=== PATIENT | male | born 1955 | race Caucasian/White ===

== ENCOUNTER 2017-03-23 09:00 | Outpatient (CLI) | payer BC ==
[~2017-03-23] VITALS: Ht 172.7 cm; Wt 65.8 kg
== END 2017-03-23 09:27 ==
LOC: PREOP 09:00
PROVIDERS: ATTEND Internal Medicine
DX: Z01.818 Encounter for other preprocedural examination (principal); Z12.11 Encounter for screening for malignant neoplasm of colon

== ENCOUNTER 2017-03-26 07:03 | Day surgery (SDC) | payer BC, OTHER ==
--- NOTE | 2017-03-25 22:50 | HISTORY AND PHYSICAL ---
DATE OF SERVICE: 03/26/2017 HISTORY OF PRESENT ILLNESS: This is a 61-year-old white male seen as a new patient evaluation in the office on 02/24/2017. He thought that he had been bitten by a brown recluse spider, had seen somebody in urgent care on Wednesday, the . He was not aware of a specific spider bite and it was of the left lower quadrant of the abdomen. It was initially a little red, slightly tender, but has flattened out. He never did note significant nodularity to suggest an abscess. He denies any problems with skin breakdown, had initial pain, now there is only mild itching. He did have swelling mildly of his hands and has now noticed some mild desquamation without pain. Denies any involvement with the feet. He had no shortness of breath, cough, or wheezing. He has had no previous colonoscopy. PAST SURGICAL HISTORY: Significant for appendectomy in 1990. FAMILY HISTORY: Father at age 62 of kidney disease and heart failure. Mother is still living at the age of 97, doing relatively well. He has one sister at the age of 72 with no reported significant physical health problems. PHYSICAL EXAMINATION: GENERAL: Reveals a normal weight white male who appears to be in no acute distress. VITAL SIGNS: Blood pressure was initially 176/94 but then down to 140/80 at the end of the interview. CHEST: Clear. CARDIOVASCULAR: Regular rate and rhythm without murmur, S3 or S4. ABDOMEN: Soft, supple without mass, organomegaly or tenderness. In the left lower quadrant of the abdomen over the skin was a violaceous area without induration or pain, no evidence for skin breakdown was noted. It was quarter size. EXTREMITIES: Reveal no cyanosis, clubbing or edema. ASSESSMENT: Possible spider bite. At this point, patient is at low risk for significant skin breakdown. Continue to monitor for this. If there is significant ulceration, he is to return. I did recommend Zostavax. Vaccination was not available. He will return for this. Otherwise, recommended yearly wellness evaluation. Prep instructions were given with the Suprep kit and questions were answered in regards to his screening colonoscopy. This was an otherwise normal well male examination. He was sent for chemistry panel, lipid panel, and PSA for screening purposes. Job ID: [id number] DocumentID: [id number] Dictated Date: 02/26/2017 17:20:58 Assistant Golf Coach Date: 02/26/2017 18:28:03 Dictated By: DEBBIE REBOLLEDO MD MTDD
[~2017-03-26] VITALS: Ht 172.7 cm; Wt 65.8 kg
[2017-03-26] MEDS ORDERED: 1/2 NS IV SOLUTION 1,000 ML IV STA (07:13)
[2017-03-26] MEDS ORDERED: MIDAZOLAM 2 MG/2 ML (VERSED) VIAL IVP PRN (07:15)
[2017-03-26] MEDS ORDERED: fentaNYL INJECTION 100 MCG/2 ML AMP IVP PRN (07:15)
[2017-03-26] MEDS ORDERED: LIDOCAINE JELLY 2% (XYLOCAINE) 5 ML TUBE MM PRN (07:15)
[2017-03-26 07:26] VITALS: BP 149/95
--- NOTE | 2017-03-26 07:32 | Pre-Op Note & Conscious Sedat ---
Pre-Operative Progress Note H&P Reviewed The H&P was reviewed, patient examined and no changes noted. Date H&P Reviewed: Mar 26, 2017 Time H&P Reviewed: 07:32 Conscious Sedation Pre-Proced ASA Class: 1 Airway Mallampati Classification: ([place] appropriate class) I. II. III, IV Lungs Heart ASA score ASA 1: a normal healthy patient ASA 2: a patient with a mild systemic disease (mid diabetes, controlled hypertension, obesity ASA 3: a patient with a severe systemic disease that limits activity (angina , COPD, prior Myocardial infarction) ASA 4: a patient with an incapacitating disease that is a constant threat to life (CHF, renal failure) ASA 5: a moribund patient not expected to survive 24 hrs. (ruptured aneurysm) ASA 6: a declared brain patient whose organs are being harvested. For emergent operations, add the letter E after the classification Grade 2 Sedation Plan: Analgesia, Amnesia, Plan communicated to team members, Discussed options with patient/fam, Discussed risks with patient/fam Note The patient is an appropriate candidate to undergo the planned procedure, sedation, and anesthesia. The patient immediately re-assessed prior to indication. DEBBIE REBOLLEDO MD Mar 26, 2017 07:32
[2017-03-26] MEDS ORDERED: fentaNYL INJECTION 100 MCG/2 ML AMP ONE (07:38)
[2017-03-26] MEDS ORDERED: LIDOCAINE JELLY 2% (XYLOCAINE) 5 ML TUBE ONE (07:38)
[2017-03-26] MEDS ORDERED: MIDAZOLAM 2 MG/2 ML (VERSED) VIAL ONE (07:38)
[2017-03-26 08:50] VITALS: BP 147/91
[2017-03-26 09:20] VITALS: BP 134/91
[2017-03-26 09:45] VITALS: BP 134/91
--- NOTE | 2017-03-27 06:28 | OPERATIVE REPORT ---
DATE OF SERVICE: 03/26/2017 COLONOSCOPY SUMMARY PRIMARY CARE PROVIDER: Debbie Rebolledo MD INDICATION FOR THE PROCEDURE: Screening colonoscopy. The patient was placed in the left lateral decubitus position. Prior to undergoing colonoscopy digital rectal evaluation was performed. Prostate is flat and quite small in size, essentially could not palpate any definitive prostate tissue. No other abnormalities were noted visual inspection of anal canal or distal rectal vault. The colonoscope was then inserted into the rectum under direct visualization and advanced to the cecum. The cecum was identified by identification of the ileocecal valve and cecal strap. Photographic documentation obtained. Careful inspection was made as the colonoscope was withdrawn. FINDINGS: There was no evidence for internal or external hemorrhoids. The rectum was unremarkable. Several small sigmoid diverticulum were present without evidence for diverticulitis. No other sigmoid colonic abnormalities were appreciated. Descending colon, splenic flexure, transverse colon, hepatic flexure, ascending colon and cecum were unremarkable. ASSESSMENT: Minimal diverticular disease confined to the sigmoid colon was present with an otherwise normal colonoscopy to the cecum. There is no evidence for neoplasia. The patient is not aware of any family history for colon cancer, so we have advocated consideration for repeat screening colonoscopy in 10 years. Job ID: [id number] DocumentID: [id number] Dictated Date: 03/26/2017 11:47:31 Casing Puller Date: 03/27/2017 06:28:22 Dictated By: DEBBIE REBOLLEDO MD
== END 2017-03-26 09:45 | disposition home or self-care (01) ==
LOC: ENDO 07:03
PROVIDERS: ATTEND Internal Medicine
DX: Z12.11 Encounter for screening for malignant neoplasm of colon (principal); K57.30 Diverticulosis of large intestine without perforation or abscess without bleeding